=== PATIENT | female | born 2005 | race Caucasian/White ===

== ENCOUNTER 2024-01-27 04:08 | Emergency (ER) | payer SELFPAY ==
[2024-01-27] MEDS ORDERED: Fluorescein Opthalmic Strip ONE (04:16)
[2024-01-27] MEDS ORDERED: Tetracaine 0.5% PF 4 ML BOT ONE (04:17)
[2024-01-27] MEDS ORDERED: Erythromycin Base 0.5% Ophth Oint 3.5 gm Tube ONE (04:43)
== END 2024-01-27 05:07 | disposition home or self-care (01) ==
LOC: NAV ERS 04:08
DX: H57.11 Ocular pain, right eye (principal); F17.210 Nicotine dependence, cigarettes, uncomplicated; Z55.6 Problems related to health literacy
CPT/HCPCS: 99283